=== PATIENT | female | born 2000 | race Caucasian/White ===

== ENCOUNTER 2023-01-15 14:02 | Inpatient (IN) ==
[2023-01-15] MEDS ORDERED: Lactated Ringers 1000 ml BAG 1,000 ML IV ONE (14:54)
[2023-01-15] MEDS ORDERED: Buffered Lidocaine 1% SYRIN 1 ml INTRADERM ONE (14:54)
[2023-01-15] MEDS ORDERED: Lactated Ringers 1000 ml BAG 1,000 ML IV SCH (15:00)
[2023-01-15] MEDS ORDERED: Penicillin G Potassium IV 5,000,000 UNITS in NS 0.9% 100 ml BAG 100 ML IVPB ONE (15:15)
[2023-01-15] MEDS ORDERED: Oxytocin in LR 20,000 MILLI.UNIT/1,000 ML BAG IV SCH (15:15)
[2023-01-15 15:31] LABS: ABS Basophils 0.1 10^3/ul (0-0.2); ABS Lymphocytes 2.2 10^3/ul (1.0-4.8); ABS Monocytes 0.5 10^3/ul (0-0.8); ABS Neutrophils 6.4 10^3/ul (1.5-7.7); Eosinophil % 0.5 %; Hematocrit 33 % (35-47); Hemoglobin 10.8 g/dL (12.0-16.0); Lymphocyte % 23.5 %; Mean Corpuscular HGB Conc 33 g/dL (31-36); Mean Corpuscular Hemoglobin 23 pg (27-31); Mean Corpuscular Volume 68 fL (80-97); Mean Platelet Volume 9.7 fL (7.4-10.4); Platelet Count 162 10^3/uL (150-450); Red Blood Count 4.78 10^6 /uL (3.70-4.87); Red Cell Distribution Width 17 % (10-15); White Blood Count 9.2 10^3/uL (3.5-10.8)
[2023-01-15 16:06] LABS: Urine Benzodiazepine Screen None Detected (None Detect); Urine Cannabinoids Screen Presumptive Positive (None Detect); Urine Opiates Screen None Detected (None Detect)
[2023-01-15] MEDS: Penicillin G Potassium IV 3,000,000 UNITS in NS 0.9% 100 ml BAG 100 ML IVPB SCH (21:22)
[2023-01-15] MEDS ORDERED: OBEPIDURAL (200 ML) 200 ML EPIDURAL ONE (22:33)
[2023-01-15] MEDS ORDERED: Lidocaine 1.5% EPI 1:200,000 30 ML SDV ONE (22:33)
[2023-01-15] MEDS ORDERED: Bupivacaine 0.25% SDV PF 10 ML VIAL INJ ONE (22:48)
[2023-01-15 23:59] LABS: Urine Appearance Clear; Urine Bilirubin Negative (Negative); Urine Blood Negative (Negative); Urine Color Straw; Urine Glucose Negative (Negative); Urine Ketones Negative (Negative); Urine Nitrite Negative (Negative); Urine Protein Negative (Negative); Urine Specific Gravity 1.011 (1.002-1.030); Urine Urobilinogen Negative (Negative)
[2023-01-16] MEDS: Penicillin G Potassium IV 3,000,000 UNITS in NS 0.9% 100 ml BAG 100 ML IVPB SCH (01:25)
[2023-01-16] MEDS ORDERED: Witch Hazel PAD JAR TOPICAL PRN (03:21)
[2023-01-16] MEDS ORDERED: Dibucaine 1% OINT 28.35 GM TUBE PR PRN (03:21)
[2023-01-16] MEDS ORDERED: Glycerin ADULT 2.4 gm SUPP PR PRN (03:21)
[2023-01-17 07:02] LABS: ABS Basophils 0.1 10^3/ul (0-0.2); ABS Eosinophils 0.1 10^3/ul (0-0.6); ABS Lymphocytes 2.4 10^3/ul (1.0-4.8); ABS Monocytes 0.4 10^3/ul (0-0.8); ABS Neutrophils 3.4 10^3/ul (1.5-7.7); Eosinophil % 0.9 %; Hematocrit 29 % (35-47); Hemoglobin 9.8 g/dL (12.0-16.0); Lymphocyte % 37.7 %; Mean Corpuscular HGB Conc 34 g/dL (31-36); Mean Corpuscular Hemoglobin 23 pg (27-31); Mean Corpuscular Volume 69 fL (80-97); Mean Platelet Volume 8.8 fL (7.4-10.4); Platelet Count 140 10^3/uL (150-450); Red Blood Count 4.17 10^6 /uL (3.70-4.87); Red Cell Distribution Width 17 % (10-15); White Blood Count 6.3 10^3/uL (3.5-10.8)
[2023-01-17 08:16] VITALS: BP 140/66
== END 2023-01-17 18:20 | disposition home or self-care (01) | DRG 560 ==
LOC: MCHOBOUT 14:02 → MCHOB 14:38
PROVIDERS: ADMIT Midwife; ATTEND Midwife